=== PATIENT | male | born 1980 | race Caucasian/White ===

== ENCOUNTER 2021-10-08 17:21 | Emergency (ER) | payer MEDICAID ==
[~2021-10-08] VITALS: Ht 175.3 cm; Wt 63.5 kg
[2021-10-08 17:30] VITALS: BP_SYST 120
[2021-10-08 17:59] VITALS: BP_SYST 120
[2021-10-08] MEDS ORDERED: GABAPENTIN 300 MG CAPSULE PO ONE (18:15)
[2021-10-08] MEDS ORDERED: NEU300 PO (18:50)
== END 2021-10-08 20:20 | disposition home or self-care (01) ==
LOC: SED 17:21
DX: M54.50 Low back pain, unspecified (principal); M54.2 Cervicalgia; M79.602 Pain in left arm; Z88.1 Allergy status to other antibiotic agents
CPT/HCPCS: 99283